=== PATIENT | female | born 1975 | race Caucasian/White ===

== ENCOUNTER 2020-02-04 07:58 | Day surgery (SDC) | payer OTHER, SELFPAY ==
--- NOTE | 2020-02-03 14:14 | PCM.HP.BLA ---
History and Physical Date of Admission: 02/04/20 HPI: The patient is a 44 year old female presenting for pre-operative visit. She is scheduled for?hysteroscopy D&C with endomtrial ablation, for?abnormal uterine bleeding, endometrial polyp on?02/04/2020. ??Procedure discussed along with risks, benefits and complications. ?Other alternatives discussed for management. Consent form signed??Yes.? PAST MEDICAL HISTORY PAST MEDICAL HISTORY Diagnosis Date ? Allergies ? ? ? PAST SURGICAL HISTORY PAST SURGICAL HISTORY Procedure Laterality Date ? REMOVAL GALLBLADDER ? CURRENT MEDICATIONS Current Outpatient Medications Medication Sig Dispense Refill ? hydroCHLOROthiazide (HYDRODIURIL, ESIDRIX) 25 mg tablet Take 25 mg by mouth once daily. ? ? ? cetirizine (ZYRTEC) 10 mg tablet Take 10 mg by mouth daily at bedtime. ? ? ? rosuvastatin (CRESTOR) 5 mg tablet Take 5 mg by mouth once daily. ? ? ? citalopram (CELEXA) 20 mg tablet Take 20 mg by mouth once daily. ? ? ? triamcinolone (KENALOG) 0.1 % TOPICAL Crea Apply to affected area(s) 2-3 times daily. (Patient not taking: ) 30 gms 0 ? No current facility-administered medications for this visit.? ? ALLERGIES:?Patient has no known allergies. ? PERSONAL HISTORY:? SOCIAL HISTORY Social History ? Tobacco Use ? Smoking status: Never Smoker ? Smokeless tobacco: Never Used Substance Use Topics ? Alcohol use: Yes ? ? Comment: seldom ? Drug use: No ? FAMILY HISTORY:? FAMILY HISTORY FAMILY HISTORY Problem Relation Age of Onset ? Hypertension Mother ?high platelets ? Lipids Father ? ? Hypertension Maternal Grandfather ? ? Breast Cancer Maternal Grandmother ? ? Cancer Paternal Grandmother ? ? Diabetes Paternal Grandfather ? ? Heart Paternal Grandfather ?open heart surgery ? REVIEW OF SYMPTOMS: GENERAL: denies fevers or chills ENDOCRINOLOGY: has not been on steroids Cardiology : denies palpitations or chest pain Respiratory: denies SOB or cough Hematology: denies history of prolonged bleeding or easy bruising or VTE Allergy: Denies history of personal or family history of allergy to anesthesia ? ? PHYSICAL EXAMINATION: ? VITALS:?Blood pressure 122/76, weight 204 lb (92.5 kg), last menstrual period 12/09/2019. ? GENERAL:??The patient is well nourished, well hydrated in no acute distress. ?, The patient is oriented to time, place, and person. NECK:?Supple. No lynphadenopathy, normal thyroid, no thyromegaly. LUNGS:?Clear to auscultation bilaterally. no wheezes, rhonchi or rales HEART:?Regular rate and rhythm, Normal heart sounds and No murmurs or gallops ?? ? Pelvic US on 12/23/2019: RESULT: Uterus size: 7.8 x 4.4 x 5.4 cm ?-Orientation: Retroverted ?-Myometrium: Normal sonographic appearance. ?-Endometrial echo complex: 0.5 cm . ?Trace fluid within it ?-Cervix: Incidental nabothian cysts Right ovary: 2.5 x 1.8 x 1.8 cm ?Simple 1.5 cm cyst Left ovary: 3.7 x 1.9 x 2.4 cm ?Complex cyst with central low level echoes and retracting clot. ?? Peripheral flow. ?Likely hemorrhagic corpus luteum cyst. ?1.7 x 1 x 1.2 cm Pelvis free fluid: Small amount of free pelvic fluid ? EMB 12/22/2019: Specimen originated from [facility] Specimen #: [id number] Submitting Physician: EDDI MONIQUE M.D. ?([id number]) FINAL DIAGNOSIS Endometrium, biopsy ?- Fragments of benign endometrial polyp. ?- Benign proliferative background endometrium. ?- Benign endocervix.? ? IMPRESSION:?AUB, endometrial polyp ? PLAN:???The risks/benefits/alternatives and personal involved for the planned?hysteroscopy D&C with endomtrial ablation?were reviewed with the patient. Her questions were answered to her satisfaction and she desires to proceed. ?Consent was signed. ?I reviewed with her postop instructions and expectations. ? ? I have reviewed and updated past medical and surgical history, medications and allergies.This H&P was completed in my office on 01/19/2020 Procedure Criteria Procedure Type: Elective COVID Risk Discussion: The surgeon/proceduralist and patient have discussed in detail the risk of exposure to and/or potential harm posed by the COVID-19 virus with having a surgery/procedure at this time versus the risk of delaying the surgery/procedure. It is not possible to know either the risk of delaying the surgery or procedure or chance of getting an infection with perfect accuracy, but a joint decision was made between the patient and the surgeon/proceduralist to proceed at this time with the scheduled surgery/procedure as indicated on the consent form.
--- NOTE | 2020-02-04 | EMB_PTH ---
PATIENT: TIAGO CULLEN LOC: [facility] [place] U#:[id number] AGE/SX: 44/F ROOM: RE02/04/[address]: Dr. Serene Shook MD : 1975 BED: DIS: 02/04/2020 SPEC #: [id number] RECD: 02/04/20 10:30 STATUS: CATHLEEN OPAL #: [id number] LETITIA: 02/04/20 00:[address]: Serene Shook DEPT: SURGICAL PATHOLOGY RECD BY: Cameron Grider ENTERED: 02/04/20 12:02 SP TYPE: ENDOTodd BX/C TANMAY DR: Lynne Cook, EDGE SETTER-C Tissues: Endometrium, NOS Procedures: Surgery Specimen Level IV HEADER OPERATION: Hysteroscopy, D & C Danae PRE-OP DIAGNOSIS: Abnormal uterine bleeding, endometrial polyp TISSUE SUBMITTED: Endometrial curettings MICROSCOPIC DIAGNOSIS Endometrium, curettings: Transition endometrium with focal glandular and stromal breakdown. Rare strips of benign superficial endocervix. AM:merlyn 02/05/20 MICROSCOPIC DESCRIPTION Slides are reviewed. GROSS DESCRIPTION Received in fixative is one container labeled with the patient's name and designated endometrial curettings. The specimen consists of multiple irregular fragments of light to dark bonilla soft tissue that in aggregate measure 2 x 2 x 0.2 cm. The specimen is totally submitted in one cassette. / AM:merlyn 02/04/20 TC:5 CPT: 97781
[2020-02-04 08:21] VITALS: BP 133/80; PULSE 87; RESP 16; TEMP 37.1; O2SAT 96; BMI 34.9
[2020-02-04] MEDS: Acetaminophen 500 MG Tablet 1000 MG PO (08:25)
[2020-02-04] MEDS: Celecoxib 200 MG Capsule 400 MG PO (08:25)
[2020-02-04] MEDS: Lactated Ringers 1,000 ML 100 ML IV (08:26)
[2020-02-04 08:31] LABS: Internal QC Validated? YES +Cl - CLEAR BKGD; Pregnancy, Urine Negative Negative
[2020-02-04 08:33] LABS: Hemoglobin 13.2 g/dL (12.0-15.0); Mean Corp Hgb Conc 32.2 g/dL (32-36); Mean Platelet Vol. 9.3 fl (6.2-12.0); Platelet Count 396 K/mm3 (150-450); RBC Distribution Width CV 13.4 % (11.6-14.6); RBC Distribution Width SD 41.5 fl (35.1-43.9); Red Blood Count 4.88 M/mm3 (4.2-5.4); White Blood Count 7.3 K/mm3 (4.4-11.0)
--- NOTE | 2020-02-04 10:04 | OP.PCM_ITS ---
Report of Operation Date of Procedure: 02/04/20 Pre-Operative Diagnosis: menorrhagia, endometrial polyp Post-Operative Diagnosis: same Surgery/Procedure Performed:: Hysteroscopy D&C with endometrial ablation (Danae) Description of Surgical Findings:: small pedunculated endoemtrial polyp, otherwise normal endometrium, cervix and vagina fur cutting machine operator: None Type of Anesthesia:: General Anesthesiologist: Srinivas Olivares Special Medications: none Specimen's removed: endometrial curettings Drains: none Estimated Blood Loss (mL): 20 Fluids Replaced: 400cc Description of Procedure: The patient was taken to the OR where she was prepped and draped in dorsal lithotomy position. The weighted speculum was placed in the vagina and the anterior lip of the cervix was grasped with a single-tooth tenaculum. A paracervical block was administered with 1% lidocaine with 1-100,000 epinephrine solution. The cervix was dilated serially with Hegar dilators. The 5mm hysteroscope was placed into the uterine cavity and the above findings were noted. Bilateral tubal ostia were identified. the uterus sounded to 8cm and the cervical length was 3.5cm. The endometrial cavity length was 4.5cm. The hysteroscope was removed. A gentle sharp curettage was done of the uterine cavity. The specimen was handed off and sent to pathology. The Danae device was set to 4.5cm. The instrument was then seated into the endometrial cavity and the indicator was in the green. The cervical seal balloon was inflated and the uterine integrity test was passed. The ablation procedure was initiated and completed without interruption. During the ablation procedure gentle traction was held on the tenaculum and the Danae device was held up against the uterine fundus. When the ablation procedure was completed the Danae was removed. The tenaculum was removed and the tenaculum site was noted to be hemostatic. All sponge and needle counts were correct. A vaginal sweep was performed by me. The patient was awakened and taken to the recovery room in stable condition. Hysteroscopic ins: 100cc normal saline Hysteroscopic outs:50cc Findings: Endometrial cavity: Normal-appearing endometrium, endometrial polyp of the anterior wall noted. Cervix: Normal Vagina: Normal Start time:0951 ENd time:1003 Grafts/Implants Used: none - Complications none - Admit VTE Documentation VTE Present on Admission: No VTE Mechan Device Prophylaxis: SCD's VTE Pharm Prophylaxis ordered?: No Reason prophylaxis not ordered:: Procedure Not Indicated
[2020-02-04 10:10] VITALS: BP 120/80; BP 133/80; PULSE 81; RESP 16; TEMP 36.7; O2SAT 94
[2020-02-04 10:15] VITALS: BP 120/80; BP 133/80; PULSE 84; RESP 18; O2SAT 94
[2020-02-04 10:30] VITALS: BP 133/80; BP 136/88; PULSE 70; RESP 16; O2SAT 99
[2020-02-04 10:41] VITALS: BP 133/80; BP 137/90; PULSE 75; RESP 16; TEMP 36.6; O2SAT 97
[2020-02-04 11:20] VITALS: BP 133/80
--- NOTE | 2020-02-04 11:45 | SUR.PHASEII ---
Patient was already to go, but is waiting on official discharge instructions. She had one episode of nausea and quesie and saltines given. She felt better after vomiting.
--- NOTE | 2020-02-04 12:09 | PCM.DC ---
You will use the following diet at home:: No restrictions Your food should be the consistency of: Regular Discharge Activity: May not drive while taking narcotic pain medications., May Shower May resume sexual activity in: 1-2 weeks - Nothing in the vagina until the bleeding stops Weight Bearing Status: Weight bearing as tolerated Lifting Restrictions: No restrictions Call your doctor if you observe: Fever of 101 or Higher, Inability to urinate, Inability to have a bowel movement, Using more than one pad per hour, Shortness of breath, Dizziness, Fainting spells, Swelling in the ankles, Chest pain, Increased palpitations (irregular heartbeat), Calf discomfort, Uncontrolled pain Allergies/Adverse Reactions: Allergies No Known Allergies Allergy (Verified 02/04/20 08:17) Medications to take at Discharge Cetirizine HCl 10 mg PO QHS 01/28/20 Citalopram [Celexa] 20 mg PO QHS 01/28/20 Hydrochlorothiazide [Hctz] 25 mg PO DAILY 01/28/20 Red Yeast Rice 600 mg PO BID 01/28/20 Rosuvastatin Calcium [Crestor] 5 mg PO QHS 01/28/20 Primary Care Physician: Lynne Cook TELEGRAPHIC TYPEWRITER OPERATOR CHIEF, TELEGRAPHIC TYPEWRITER OPERATOR CHIEF-C [Primary Care Provider] - Test Results: Test results from this visit will be discussed in further detail at your follow-up appointment, if applicable. Please Follow Up With: Serene Shook MD When: 1-2 weeks
== END 2020-02-04 12:23 | disposition home or self-care (01) ==
LOC: SDC 07:58 → AC 07:59
PROVIDERS: Anesthesiology; PCP Nurse Practitioner Family; Referring Provider Obstetrics & Gynecology; Visit Provider Obstetrics & Gynecology
PROC: 0U5B8ZZ Destruction of Endometrium, Via Natural or Artificial Opening Endoscopic (ICD-10-PCS; CPT 58558; principal; 2020-02-04 09:15)
DX: N92.0 Excessive and frequent menstruation with regular cycle (principal); N84.0 Polyp of corpus uteri; I10 Essential (primary) hypertension; E78.00 Pure hypercholesterolemia, unspecified; F32.9 Major depressive disorder, single episode, unspecified; Z79.899 Other long term (current) drug therapy; Z20.828 Contact with and (suspected) exposure to other viral communicable diseases
CPT/HCPCS: 00952; 58563; 36415; 81025; 85027; 87426; 88305; C9803; J7120; J2405

== ENCOUNTER 2024-08-28 07:52 | Day surgery (SDC) | payer OTHER, SELFPAY ==
[2024-08-28] VITALS (9 sets, daily range): BP systolic 104–136; BP diastolic 70–90; PULSE 77–91; RESP 16; TEMP 36.1–36.3; O2SAT 96–100; BMI 32.5
[2024-08-28] MEDS: Lactated Ringers 1,000 ML 15 ML IV (08:15)
[2024-08-28 08:17] LABS: Internal QC Validated? YES +Cl - CLEAR BKGD; Pregnancy, Urine Negative Negative
--- NOTE | 2024-08-28 08:24 | PCM.PRE.AN2 ---
ASA Classification* ASA Classification ASA Classification: 2 Assessment & Plan Anesthesia* Anesthesia Assessment Anesthesia Assessment: Discussed sedation and/or anesthesia options, risks, benefits, and alternatives with patient/parents/legal guardian/POA. Questions invited. The patient/parents/legal guardian/POA seems to understand and agrees to proceed with anesthesia plan. Reviewed the physical assessment, medical history, allergy history and patient home medications list prior to surgery/procedure/anesthetic and documented any changes. Performed airway and anesthesia risk assessments. Anesthesia Type Anesthesia Type: MAC Anesthesia Focused Assessment* Temperature: 97.0 F Pulse Rate: 91 Blood Pressure: 136/90 Respiratory Rate: 16 Pulse Ox: 97 Airway Assessment Mouth opens: >3 cm Mallampati Score: II Labs Anesthesia Preop lab: CBC WBC 7.3 K/mm3 (4.4-11.0) 02/04/20 08:18 02/04/20 RBC 4.88 M/mm3 (4.2-5.4) 02/04/20 08:18 02/04/20 Hgb 13.2 g/dL (12.0-15.0) 02/04/20 08:18 02/04/20 Hct 41.0 % (37-47) 02/04/20 08:18 02/04/20 Plt Count 396 K/mm3 (150-450) 02/04/20 08:18 02/04/20 CHEMISTRY COAG Urine Test Negative Negative 08/28/24 08:00 08/28/24 Pre-Assessment Diagnosis/Proposed Procedure Planned Operative Procedure(s): COLONOSCOPY Anesthesia History Anesthesia History - side piece coverer: Anesthesia History - side piece coverer Hx Hospitalization No 08/26/24 15:54 Any Problems With Anesthesia Yes: GAGGING WHEN WAKING UP 08/26/24 15:54 FROM LAP HERMINIO Cholinesterase deficiency No 08/26/24 15:54 You/Your Family Experience No 08/26/24 15:54 fever (hyperthermia) with Relationship Recent Exposure to Contagious No 08/28/24 08:08 Disease Does patient have nerve No 08/26/24 15:54 stimulator Patient instructed to have device shut off --Does patient have Pacemaker or ICD? When Was Last Pacemaker Check QUESTION #4 FULL TEXT: You/Your Family Experience fever (hyperthermia) with Anesthesia Last Oral Intake Last Oral intake: Last Oral Intake NPO since Meds taken in AM with sips of water? Meds patient instructed to take am of surgery PONV PONV - side piece coverer: PONV - side piece coverer Female Yes 08/26/24 15:54 HX of Motion Sickness Yes 08/26/24 15:54 HX of N/V After Surgery No 08/26/24 15:54 Non-Smoker Yes 08/26/24 15:54 Duration of Surgery greater No 08/26/24 15:54 than 60 minutes Number of Risk Factors 3 08/26/24 15:54 PONV Score Moderate Risk 08/26/24 15:54 Height & Weight Height & Weight: Anesthesia: Height & Weight Height 5 ft 4 in 08/28/24 08:08 Weight: 86 kg 08/28/24 08:08 Body Mass Index (BMI) 32.5 08/28/24 08:08 Respiratory Assessment Respiratory Assessment - side piece coverer: Respiratory Tract Infection Hx - side piece coverer Hx Respiratory Tract Infection No 08/26/24 15:54 STOP Sleep Apnea STOP Sleep Apnea - side piece coverer: STOP Sleep Apnea - side piece coverer Hx Hypertension Yes 08/26/24 15:54 Hx Sleep Apnea No 08/26/24 15:54 CPAP BIPAP Do you snore loudly (louder No 08/26/24 15:54 than talking or can be heard Do you often feel tired/ No 08/26/24 15:54 fatigued/ sleepy during daytime? Has anyone observed you stop No 08/26/24 15:54 breathing during sleep? STOP Results Negative 08/26/24 15:54 QUESTION #5 FULL TEXT : Do you snore loudly (louder than talking or can be heard through closed doors)? Tobacco Use History Tobacco Use History - side piece coverer: Tobacco Use History - side piece coverer Tobacco Use Smoking Status Never smoker 08/26/24 15:54 Hx Tobacco Use No 08/26/24 15:54 Years Smoking Packs Smoked per Day Smoking Cessation Date was within the last 15 years Hx Smoking Cessation Date Hx Smoking Cessation Counseling Hematologic Medial History Hematologic Hx - side piece coverer: Hematologic Medical Hx - visiting professor Hx of Blood Transfusion No 08/26/24 15:54 Hx of Transfusion in last 3 No 08/26/24 15:54 Months Date of Last Transfusion (if within last 3 months) Ever experience any problems No 08/26/24 15:54 with transfusion(s)? Specify any problems Hx of Preganancy in last 3 No 08/26/24 15:54 Months Nurse Filling Out Transfusion [facility] 08/26/24 15:54 & Questions: Date: 08/26/24 08/26/24 15:54 Time: 16:03 08/26/24 15:54 Patient unable to answer at this time (ie. confused, unrespo /Reproduction History /Reproductive History - side piece coverer: /Reproductive Hx- side piece coverer Hx Now No 08/26/24 15:54 Gestational Age (in weeks): EDC: Hx Hx Para Hx Section SAB No 08/26/24 15:54 Active Medications Active Medications: Current Medications Generic Name Dose Route Start Last Admin Trade Name Freq PRN Reason Stop Dose Admin Lactated Ringer's 1,000 mls @ 15 mls/hr 08/28/24 08:00 08/28/24 08:15 IV 15 mls/hr .Q48H NATHALY Administration PFSH Medical History Vertigo Depression Anxiety Thyroid disease Low iron High cholesterol Migraine headache History of IBS Non-smoker History of echocardiogram History of stress test History of edema Hypertension Home Medications Medication Instructions Recorded Last Taken Type cetirizine 10 mg tablet 10 mg PO QHS allergies 01/28/20 Unknown History citalopram 20 mg tablet 20 mg PO QHS depression 01/28/20 Unknown History hydrochlorothiazide 25 mg tablet 25 mg PO DAILY bp 01/28/20 Unknown History rosuvastatin 5 mg tablet 5 mg PO QHS cholesterol 01/28/20 Unknown History cholecalciferol (vitamin D3) 50 50 mcg PO DAILY 08/26/24 Unknown History mcg (2,000 unit) capsule levothyroxine 25 mcg tablet 25 mcg PO DAILY 08/26/24 Unknown History Allergy/AdvReac Type Severity Reaction Status Date / Time No Known Allergies Allergy Verified 08/28/24 08:07 Surgical History History of endometrial ablation History of cholecystectomy Social History Smoking Status: Never smoker Review of Systems (Anesthesia) ROS Narrative System reviewed and no additional complaints, except as documented.
--- NOTE | 2024-08-28 09:00 | COLBX_PTH ---
PATIENT: TIAGO CULLEN LOC: [facility] U#:[id number] AGE/SX: 49/F ROOM: RE08/28/[address]: Dr. Carlo Hoyos MD : 1975 BED: DIS: 08/28/2024 SPEC #: [id number] RECD: 08/28/24 12:15 STATUS: CATHLEEN OPAL #: [id number] LETITIA: 08/28/24 09:[address]: Carlo Hoyos DEPT: SURGICAL PATHOLOGY RECD BY: Masoud Padilla ENTERED: 08/28/24 13:25 SP TYPE: COLON BX OTHR DR: Lynne Cook, CARLOS-C Tissues: A - Sigmoid colon biopsy Procedures: Surgery Specimen Level IV HEADER OPERATION: Colonoscopy and polypectomy PRE-OP DIAGNOSIS: Screening TISSUE SUBMITTED: A- Sigmoid colon polyp MICROSCOPIC DIAGNOSIS A. Sigmoid, colon, polyp, biopsy: - Tubular adenoma. MICROSCOPIC DESCRIPTION Slides are reviewed. GROSS DESCRIPTION A. Received in formalin labeled with the patient's name and date of . Designated as " sigmoid colon polyp" is a 0.5 cm bonilla tissue fragment. Entirely submitted in 1 cassette. [place] 08/28/2024 CPT:92603
--- NOTE | 2024-08-28 09:18 | HP.PCM_ITS ---
HPI - General HPI Narrative TIAGO CULLEN, is a 49 F who presents for screening colonoscopy. She has never had a colonoscopy in the past. She denies abdominal pain or blood in the stool. No family history of colon cancer. [facility] Medical History Vertigo Depression Anxiety Thyroid disease Low iron High cholesterol Migraine headache History of IBS Non-smoker History of echocardiogram History of stress test History of edema Hypertension Home Medications Medication Instructions Recorded Last Taken Type cetirizine 10 mg tablet 10 mg PO QHS allergies 01/27 Unknown History citalopram 20 mg tablet 20 mg PO QHS depression 01/16 05/07 Unknown History hydrochlorothiazide 25 mg tablet 25 mg PO DAILY bp 03/06 Unknown History rosuvastatin 5 mg tablet 5 mg PO QHS cholesterol 01/16 05/07 Unknown History cholecalciferol (vitamin D3) 50 50 mcg PO DAILY Unknown History mcg (2,000 unit) capsule levothyroxine 25 mcg tablet 25 mcg PO DAILY 08/26/24 U nknown History Allergy/AdvReac Type Severity Reaction Status Date / Time No Known Allergies Allergy Verified 08/28/24 08:07 Surgical History History of endometrial ablation History of cholecystectomy Social History Smoking Status: Never smoker Past Medical/Surgical History Planned Operation Planned Operative Procedure(s): COLONOSCOPY S.O.S: No Previous Hospitalizations/Surgeries HX Hospitalizations: No HX of Surgeries: gallbladder Any Problems With Anesthesia: Yes (GAGGING WHEN WAKING UP FROM LAP HERMINIO) You/Your Family Experience Fever (Hyperthermia) With Anes: No Cholinesterase deficiency: No Cardiovascular Hx Chest Pain within Last 2 months: No Hx of Irregular Heartbeat and/or Afib: No Hx Heart Attack: No Hx Congestive Heart Failure: No Hx Rheumatic Fever: No Hx Hypertension: Yes Hx Internal Defibrillator: No Hx Pacemaker: No Hx Cardiac Catheterization: No Hx Cardiac Surgery/Stents/Etc.: No Hx Stress Test: Yes (stress,echo over 5 yrs ago. states neg) Hx Pain in Legs when Walking/Leg Cramps: No Respiratory Chronic Cough: No HX of Shortness of Breath: No (denies) Hoarseness: No Hx Chronic Obstructive Pulmonary Disease (COPD): No Hx Asthma: No Hx Emphysema: No Hx Sleep Apnea: No Hx Respiratory Tract Infection/Cold (presently): No Do You Snore Loudly (louder than talking or can be heard): No Do You Often Feel Tired/ Fatigued/ Sleepy Dring Daytime?: No Has Anyone Observed You Stop Breathing During Sleep?: No Result (for STOP score): Negative Hx Smoking: No Smoking Status: Never smoker Gastrointestinal Hx Gastrointestinal Disorders: No Hx Gastrointestinal Bleed: No Hx Ulcer: No Hx Hiatal Hernia: No Difficulty Chewing/Swallowing: No Special diet followed at home: No Hx Unplanned Weight Loss of 20#: No HX Unplanned Weight Gain of 20#: No Neurological Hx Seizures: No HX Syncope/Blackout Spells/Unconsciousness: No Hx Transient Ischemic Attacks (TIA): No Hx Multiple Sclerosis: No Hx Parkinson's Disease: No Hx Head/Neck Injury: No Hx Headaches: Yes (occas) Hx Back Injury/Pain: No Recent Onset of Speech Difficulty: No Restless Legs: Yes (sometimes/not diagnosed) Does patient have nerve stimulator: No Blood Disorder Hx Leukemia: No Bleeding Tendencies: No Hx Deep Vein Thrombosis: No Hx High Cholesterol: Yes (on med) Blood Transmitted Disease: No Hx Hepatitis: No Hx Cirrhosis: No Hx Anemia: No Hx Blood Disorders: No Reproduction : No Is Patient Lactating: No Hx Hysterectomy: No Hx Tubal Ligation: No Are You Post Menopause: No Genitourinary Hx Renal Disease: No Musculoskeletal Hx Arthritis: No Hx Rheumatoid Arthritis: No Hx Gout: No Recent Onset of an Orthopedic Problem: No Endocrine Hx Diabetes: No Thyroid Disease: No Hx Steroid Therapy: Yes (oral) Psycho/Social Hx Substance Use: No Hx Alcohol Use: Yes (1 drink/month) Hx Anxiety: No Hx Depression: Yes (on med) Mental Illness: No Hx Dementia: No Miscellaneous Hx Cancer: No Recent Exposure to Contagious Disease: No Hx of C-Diff: No Any Loose Teeth: No Allergies No Known Allergies Allergy (Verified 08/28/24 08:07) Discharge Is Pt Admitted From a Prison, or a Long Term: No Who Could Help: After D/C, Where Do you Plan to Go: Return Home Vital Signs Vital Signs Vital Signs: 08/28/24 08:08 08/28/24 08:08 08/28/24 08:24 Temperature 97.0 F L 97.0 F L Temperature Source Temporal Pulse Rate 91 91 Respiratory Rate 16 16 Respiratory Pattern Normal Blood Pressure 136/90 H 136/90 H Blood Pressure Mean 105 Blood Pressure Source Monitor Blood Pressure Position Semi-Fowlers Blood Pressure Location Right Arm Pulse Ox 97 97 Oxygen Delivery Method Room Air Weight Weight: 189 lb 9.561 oz Body Mass Index (BMI) 32.5 Physical Exam Const alert and oriented x3 HEENT normocephalic Eyes PERRL Resp normal respiratory effort and normal air movement Cardio regular rate and regular rhythm GI soft to palpation, non-tender and non-distended Extremity normal to inspection Assessment & Plan Assessment/Plan (1) Screen for colon cancer: PLAN: I explained endoscopy in detail to the patient. I explained the risks including but not limited to stroke or heart attack with anesthesia, perforation of the GI tract, bleeding, infection. I explained that any of these could necessitate further emergency surgery. The patient understands and all questions were answered sufficiently. The patient wishes to proceed with procedure. Carlo Hoyos MD Pager: [facility] [address] [place] [address], [address] [place] [address] Office: Surgery Risks - Colonoscopy Risks Include but are not Limited To: Risks include but are not limited to: Bleeding, perforation requiring further surgery, inability to complete colonoscopy requiring barium enema.
--- NOTE | 2024-08-28 09:49 | OP.CCLET_ITS ---
08/28/2024 Lynne Cook Re : Colonoscopy procedure for Krystyna Kerr Joey This procedure was performed on Wednesday, August 28, 2024. My impressions and recommendations are as follows: Impressions : - One polyp in the sigmoid colon, removed with a hot snare. Resected and retrieved. - The examination was otherwise normal on direct and retroflexion views. Recommendations : - Discharge patient to home. - Resume previous diet. - Continue present medications. - Await pathology results. - Repeat colonoscopy in 5 years for screening purposes. My findings are described in the full procedure note, which is enclosed. If I can be of further assistance, please feel free to contact me at Doctor phone number(s): , Work: . Sincerely, Carlo Hoyos MD 08/28/2024 9:48:46 AM This report has been signed electronically.
--- NOTE | 2024-08-28 09:49 | OP.COLON_ITS ---
Patient Name: Krystyna Martin Procedure Date: 08/28/2024 9:24 AM Date of : 1975 Age: 49 Procedure: Colonoscopy Indications: Screening for colorectal malignant neoplasm Providers: Carlo Hoyos MD Referring MD: Lynne Cook Medicines: Propofol per Anesthesia Patient Profile: This is a 49 year old female. Refer to note in patient chart for documentation of history and physical. Last Colonoscopy: none. The patient's first colonoscopy is today. Complications: No immediate complications. Procedure: Pre-Anesthesia Assessment: - Prior to the procedure, a History and Physical was performed, and patient medications and allergies were reviewed. The patient's tolerance of previous anesthesia was also reviewed. The risks and benefits of the procedure and the sedation options and risks were discussed with the patient. All questions were answered, and informed consent was obtained. Prior Anticoagulants: The patient has taken no anticoagulant or antiplatelet agents. After reviewing the risks and benefits, the patient was deemed in satisfactory condition to undergo the procedure. After I obtained informed consent, the scope was passed under direct vision. Throughout the procedure, the patient's blood pressure, pulse, and oxygen saturations were monitored continuously. The pediatric colonoscope was introduced through the anus and advanced to the cecum, identified by appendiceal orifice and ileocecal valve. The colonoscopy was performed without difficulty. The patient tolerated the procedure well. The quality of the bowel preparation was good. The ileocecal valve, appendiceal orifice, and rectum were photographed. Scope In: 9:36:09 AM Scope Withdrawal Time 0 hours 5 minutes 18 seconds Scope Out: 9:45:44 AM Total Procedure Duration Time 0 hours 9 minutes 35 seconds Findings: A polyp was found in the sigmoid colon. The polyp was removed with a hot snare. Resection and retrieval were complete. The exam was otherwise without abnormality on direct and retroflexion views. Impression: - One polyp in the sigmoid colon, removed with a hot snare. Resected and retrieved. - The examination was otherwise normal on direct and retroflexion views. Recommendation: - Discharge patient to home. - Resume previous diet. - Continue present medications. - Await pathology results. - Repeat colonoscopy in 5 years for screening purposes. Procedure Code(s): --- Professional --- 51182, Colonoscopy, flexible; with removal of tumor(s), polyp(s), or other lesion(s) by snare technique Diagnosis Code(s): --- Professional --- Z12.11, Encounter for screening for malignant neoplasm of colon D12.5, Benign neoplasm of sigmoid colon CPT copyright 2021 [employer]. All rights reserved. The codes documented in this report are preliminary and upon certified medical records coder review may be revised to meet current compliance requirements. Carlo Hoyos MD 08/28/2024 9:48:46 AM This report has been signed electronically. Number of Addenda: 0 Note Initiated On: 08/28/2024 9:24 AM
--- NOTE | 2024-08-28 09:56 | PCM.POST.ANE ---
Anesthesia: Postop Eval I Current Vital Signs Temperature: 97.2 F Pulse Rate: 88 Blood Pressure: 104/77 Respiratory Rate: 16 Pulse Ox: 97 Oxygen Delivery Method: Room Air Assessment Airway patent: Yes Spontaneous unlabored respirations: Yes Mental status: Asleep nausea: No Vomiting: No Anesthesia Complication: No Fluid Hydration Crystalloid volume administer (ml): 400 Total IV fluid infused: 400 Progress Note Anesthesia document: Postop Eval 1 completed: Yes
--- NOTE | 2024-08-28 11:31 | PCM.POSTANE2 ---
Anesthesia Postop Eval I Sum Postop Eval Completion status Anesthesia document: Postop Eval 1 completed: Yes Anesthesia Postop Eval I Summary Anesthesia Postop Eval I Summary: Anesthesia Postop Eval I: Assessment Summary Airway patent Yes 08/28/24 09:57 [email or web address] Spontaneous unlabored Yes 08/28/24 09:57 [email or web address] respirations Mental status Asleep 08/28/24 09:57 [email or web address] nausea No 08/28/24 09:57 [email or web address] Vomiting No 08/28/24 09:57 [email or web address] Anesthesia Postop Eval I: Fluid Summary Crystalloid volume administer 400 08/28/24 09:57 [email or web address] (ml) Colloids volume administered ( ml) Blood Product volume administered (ml) Total IV fluid infused 400 08/28/24 09:57 [email or web address] Anesthesia Postop Eval I: Summary Notes Anesthesia Complication No 08/28/24 09:57 [email or web address] Anesthesia Complication Comment: Post-operative progress note Anesthesia: Postop Eval II Evaluation Mental status: Awake Pain Level: 0 nausea: No Vomiting: No
== END 2024-08-28 10:42 | disposition home or self-care (01) ==
LOC: EN 07:55 → AC 07:56
PROVIDERS: Anesthesiology; PCP Nurse Practitioner Family; Referring Provider Nurse Practitioner Family; Visit Provider Surgery
PROC: 0DJD8ZZ Inspection of Lower Intestinal Tract, Via Natural or Artificial Opening Endoscopic (ICD-10-PCS; CPT 45378; principal; 2024-08-28 08:55)
DX: Z12.11 Encounter for screening for malignant neoplasm of colon (principal); D12.5 Benign neoplasm of sigmoid colon; E78.00 Pure hypercholesterolemia, unspecified; I10 Essential (primary) hypertension; F41.9 Anxiety disorder, unspecified; F32.A Depression, unspecified; Z79.899 Other long term (current) drug therapy
CPT/HCPCS: 45385; 81025; 88305; J2405